=== PATIENT | female | born 1990 | race Caucasian/White ===

== ENCOUNTER 2018-10-30 05:51 | Inpatient (IN) | payer BC ==
[2018-10-30] MEDS ORDERED: Butorphanol Tartrate 1 MG/ML VIAL SLOW IVP PRN (06:19)
[2018-10-30] MEDS ORDERED: Bicitra 30 ML UDCUP PO SCH (06:19)
[2018-10-30] MEDS ORDERED: CEFAZOLIN/Water 2 GM/20 ML SYRINGE SLOW IVP SCH (06:19)
[2018-10-30] MEDS ORDERED: Promethazine HCl 25 MG/ML VIAL IM PRN ×2 (06:19→08:27)
[2018-10-30] MEDS ORDERED: Lactated Ringer's 1,000 ML IV SCH (06:19)
[2018-10-30] MEDS ORDERED: Ondansetron PF 4 MG/2 ML Vial IVP PRN ×3 (06:19→10:44)
[2018-10-30] MEDS ORDERED: Docusate 100 MG CAP PO PRN (06:19)
[2018-10-30 06:27] VITALS: BMI 36.1
[2018-10-30 06:30] LABS: Hemoglobin 11.9 g/dL (12.0-16.0); Mean Corpuscular HGB CONC 33.2 g/dL (32.0-36.0); Mean Corpuscular Hemoglobin 28.2 pg (27.0-31.0); Mean Platelet Volume 8.8 fL (7.4-10.4); Platelet Count 268 thou/uL (130-400); RBC Distribution Width 12.9 % (11.5-14.5); Red Blood Cell (RBC) Count 4.22 mill/uL (4.20-5.40); White Blood Cell (WBC) Count 6.7 thou/uL (4.8-10.8)
[2018-10-30] MEDS ORDERED: CEFAZOLIN 2 GM/50 ML-DEXTROSE 2 GM in Premix Bag 1 BAG IVPB SCH (06:30)
[2018-10-30] MEDS ORDERED: Morphine PF 1 MG/ML SYR ONE (07:08)
[2018-10-30] MEDS ORDERED: Oxytocin 10 UNITS/ML VIAL ONE (07:08)
[2018-10-30] MEDS ORDERED: Ketorolac Tromethamine 30 MG/ML VIAL ONE (07:08)
[2018-10-30 07:09] LABS: HBSAg Index 0.24 S/CO (0-0.99); Hep B Surf Ag Non-Reactive S/CO (NonReactive); Syphilis Antibody Nonreactive (Nonreactive); Syphilis Antibody Index 0.05 S/CO (<1.00 Non-Reactive)
[2018-10-30] MEDS ORDERED: HYDROmorphone 2 MG/ML VIAL SLOW IVP PRN (08:27)
[2018-10-30] MEDS ORDERED: Naloxone HCl 0.4 mg/ml Vial IVP PRN ×2 (08:27)
[2018-10-30] MEDS ORDERED: diphenhydrAMINE 50 MG/ML VIAL IVP PRN (08:27)
[2018-10-30] MEDS ORDERED: L&D-Morphine 4 MG/ML VIAL SLOW IVP PRN (08:27)
[2018-10-30] MEDS ORDERED: Promethazine HCl 25 MG SUPP PR PRN (08:27)
[2018-10-30] MEDS ORDERED: Ondansetron HCl/PF 4 MG/2 ML Vial IVP PRN (08:27)
[2018-10-30] MEDS ORDERED: Naloxone HCl 0.4 mg/ml Vial IV PRN (08:27)
[2018-10-30] MEDS ORDERED: Meperidine HCl/PF 25 MG/ML VIAL SLOW IVP PRN (08:27)
[2018-10-30] MEDS ORDERED: Eucerin (Mineral Oil/Petrolatum,White) 30 gm Jar TOP PRN (08:27)
[2018-10-30] MEDS ORDERED: Communication Order-Pharmacy FS SCH (08:30)
[2018-10-30] MEDS ORDERED: Ketorolac Tromethamine 30 MG/ML VIAL IVP SCH (08:30)
[2018-10-30] MEDS ORDERED: Bisacodyl 10 MG SUPP PR PRN (10:44)
[2018-10-30] MEDS ORDERED: diphenhydrAMINE 25 MG CAP PO PRN (10:44)
[2018-10-30] MEDS ORDERED: Adacel (T-DAP) 0.5 ML SYRINGE IM ONE (10:44)
[2018-10-30] MEDS ORDERED: Lanolin Ointment 7 GM TUBE TOP PRN (10:44)
[2018-10-30] MEDS ORDERED: Acetaminophen 325 MG TAB PO PRN (10:44)
[2018-10-30] MEDS ORDERED: Ferrous Sulfate 325 MG TAB PO SCH (11:15)
[2018-10-30] MEDS ORDERED: Docusate Calcium (SURFAK) 240 MG CAP PO SCH (11:15)
[2018-10-30] MEDS ORDERED: Prenatal Vitamin 1 TAB PO SCH (11:15)
--- NOTE | 2018-10-30 11:17 | OP ---
DATE OF PROCEDURE: 10/30/2018 RESIDENT SURGEON: Myesha Bingham DO WEBSITE DESIGNER SURGEON: Corina Harrington MD PREOPERATIVE DIAGNOSES: 1. Long-term intrauterine at 39 weeks. 2. Prior section. 3. Declines trial of labor. POSTOPERATIVE DIAGNOSES: 1. Long-term intrauterine at 39 weeks. 2. Prior section. 3. Declines trial of labor. PROCEDURE PERFORMED: Repeat low transverse section. ANESTHESIA: Spinal catheterization. FINDINGS: 1. Midline diastasis with superior hernia sac. 2. Vigorous male , 7 pounds 6 ounces, Apgars 9 and 9. 3. Normal uterus, tubes, and ovaries. COMPLICATIONS: None. SPECIMENS REMOVED: Cord blood. BLOOD LOSS: Approximately 600 mL. DESCRIPTION OF PROCEDURE: After thorough consent and counseling, Mrs. Correa was taken to the operating room and adequate level of anesthesia was obtained via spinal catheterization. The patient was prepped and draped in the usual sterile fashion for abdominal surgery. A Hernández was placed in the bladder, which was noted to be draining clear urine. Attention was then turned to perform a primary low-transverse section. A Pfannenstiel incision was made and the old scar was excised. The incision was carried sharply to the fascia, which was also sharply incised. The midline was identified and the rectus muscles were retracted laterally. The abdominal peritoneal cavity was entered with the usual safeguards carried out. A retractor was placed and a bladder flap was created on the vesicouterine peritoneum. A bladder blade was then placed. A low-transverse incision was made on the well-developed lower uterine segment. Upon entering the amniotic sac, a copious amount of clear amniotic fluid was visualized. The infant was noted to be vertex presentation in the occiput anterior position. Nuchal cord x1 was easily reduced. Head was delivered. Baby was bulb suctioned on the abdomen. Shoulders and body were then easily delivered. The cord was doubly clamped and cut and the was handed to the Pediatric Team in attendance for the delivery. The was a vigorous viable male, weighing 7 pounds 6 ounces with Apgars 9 and 9 obtained at 1 and 5 minutes, respectively. Cord blood was obtained. The placenta was manually removed from the uterus. The uterus was exteriorized and good tone was noted. The uterine cavity was again cleared of clot and fluid. The low-transverse incision was closed with a running locking ligature of #1 chromic. Severe [id number] ligatures of #1 chromic were placed to facilitate hemostasis. The vesicouterine peritoneum was reapproximated to the lower segment with running ligature was 3-0 Monocryl. The uterus, fallopian tubes, and ovaries were inspected and noted to be normal with no pathology identified. The posterior cul-de-sac and gutters were cleared of clot and fluid. Seprafilm was applied to the low-transverse incision and to the anterior aspect of the uterus for adhesion prevention. The uterus was returned to the abdomen and good tone and hemostasis was again appreciated. The peritoneum was reapproximated in the midline including the superior hernia sac with running ligature of 2-0 Vicryl. The rectus muscles were also reapproximated in the midline with interrupted LigaSure of 2-0 Vicryl. Good muscle reapproximation closure was noted. The fascia was closed with 2 ligatures of 0 Vicryl, tied at the midline. Good fascial integrity was appreciated. The incision was irrigated with copious amount of warm normal saline. The subcutaneous tissue was closed with interrupted LigaSure of 2-0 plain. The skin was closed with a subcuticular stitch of 4-0 Monocryl and dressed with Dermabond. Lap, sponge, and needle counts were correct x3. The estimated blood loss during the surgical procedure was approximately 600 mL. A pressure dressing and ice packs were subsequently placed. The patient was taken to recovery room in good condition. Mother and baby were doing well postoperatively. Immediately following the surgery, the patient and family were made aware of the surgical procedure and the operative findings. Questions answered to their satisfaction. Job ID: [id number]
[2018-10-30] MEDS: Ketorolac Tromethamine 30 MG/ML VIAL IVP PRN ×2 (13:39→19:54)
[2018-10-30] MEDS: Ferrous Sulfate 325 MG TAB PO SCH (17:35)
[2018-10-30] MEDS: Simethicone Chewable 80 MG TAB PO PRN (18:27)
[2018-10-30] MEDS: Docusate Calcium (SURFAK) 240 MG CAP PO SCH (21:22)
[2018-10-31] MEDS ORDERED: Sodium Chloride 0.9% 10 ML ONE (04:19)
[2018-10-31] MEDS: Ketorolac Tromethamine 30 MG/ML VIAL IVP PRN (04:22)
[2018-10-31] MEDS: Simethicone Chewable 80 MG TAB PO PRN ×3 (04:24→20:51)
[2018-10-31 07:57] LABS: Hemoglobin 9.5 g/dL (12.0-16.0); Mean Corpuscular HGB CONC 31.9 g/dL (32.0-36.0); Mean Corpuscular Hemoglobin 27.3 pg (27.0-31.0); Mean Corpuscular Volume 85.8 fL (78.0-98.0); Mean Platelet Volume 8.1 fL (7.4-10.4); Platelet Count 227 thou/uL (130-400); RBC Distribution Width 12.9 % (11.5-14.5); Red Blood Cell (RBC) Count 3.49 mill/uL (4.20-5.40); White Blood Cell (WBC) Count 7.6 thou/uL (4.8-10.8)
[2018-10-31] MEDS: Prenatal Vitamin 1 TAB PO SCH (09:40)
[2018-10-31] MEDS: Docusate Calcium (SURFAK) 240 MG CAP PO SCH ×2 (09:40→20:51)
[2018-10-31] MEDS: Ferrous Sulfate 325 MG TAB PO SCH ×3 (09:42→17:57)
[2018-10-31] MEDS: Ibuprofen 800 MG TAB PO SCH ×2 (11:53→20:51)
[2018-10-31] MEDS: Acetaminophen/Codeine 30-300mg Tablet PO PRN ×2 (12:13→20:51)
[2018-11-01] MEDS: Acetaminophen/Codeine 30-300mg Tablet PO PRN ×4 (00:46→13:42)
[2018-11-01 04:24] VITALS: TEMP 98.2
[2018-11-01] MEDS: Ibuprofen 800 MG TAB PO SCH ×2 (06:07→13:29)
[2018-11-01 08:39] VITALS: BP 115/67
[2018-11-01] MEDS: Ferrous Sulfate 325 MG TAB PO SCH (08:53)
[2018-11-01] MEDS: Simethicone Chewable 80 MG TAB PO PRN (08:53)
[2018-11-01] MEDS: Docusate Calcium (SURFAK) 240 MG CAP PO SCH (08:53)
[2018-11-01] MEDS: Prenatal Vitamin 1 TAB PO SCH (08:53)
== END 2018-11-01 14:15 | disposition home or self-care (01) | DRG 788 ==
LOC: L&D 05:51 → 3SW 14:33 → EDSTATUS 11-05 14:06
PROVIDERS: ADMIT Obstetrics & Gynecology; ATTEND Obstetrics & Gynecology
PROC: 10D00Z1 Extraction of Products of Conception, Low, Open Approach (ICD-10-PCS; principal; 2018-10-30)
DX: O34.211 Maternal care for low transverse scar from previous cesarean delivery (principal); Z3A.39 39 weeks gestation of pregnancy; Z37.0 Single live birth
CPT/HCPCS: 36415; 51702; 85027; 86780; 86850; 86900; 86901; 87340; J1885; J2274; J2405; J2590